=== PATIENT | female | born 1990 | race African-American/Black ===

== ENCOUNTER 2018-10-30 00:08 | Emergency (ER) | payer MEDICAID ==
[~2018-10-30] VITALS: Ht 157.5 cm; Wt 62.0 kg
[2018-10-30] MEDS ORDERED: IBUPROFEN 600MG TABLET PO ONE (02:30)
[2018-10-30] MEDS ORDERED: DOXYCYCLINE HYCLATE 100MG CAPSULE PO ONE (04:30)
[2018-10-30] MEDS ORDERED: CEPHALEXIN 250MG CAPSULE PO ONE (04:30)
[2018-10-30 04:52] VITALS: BP 138/60
== END 2018-10-30 04:53 | disposition home or self-care (01) ==
LOC: ER 02:12
DX: L02.211 Cutaneous abscess of abdominal wall (principal); R05 Cough; R10.33 Periumbilical pain; R09.89 Other specified symptoms and signs involving the circulatory and respiratory systems; F17.200 Nicotine dependence, unspecified, uncomplicated; Z98.890 Other specified postprocedural states
CPT/HCPCS: 71045; 99284; Z7610